=== PATIENT | female | born 1950 | race Caucasian/White ===

== ENCOUNTER 2017-11-27 12:50 | Outpatient (CLI) | payer MEDICARE | END 2017-11-27 12:51 | disposition home or self-care (01) | LOC: DI 12:50 | PROVIDERS: ATTEND Internal Medicine Cardiovascular Disease | DX: R94.31 Abnormal electrocardiogram [ECG] [EKG] (principal) | CPT/HCPCS: 93306 ==

== ENCOUNTER 2017-12-11 13:07 | Outpatient (CLI) | payer MEDICARE | END 2017-12-11 13:08 | disposition home or self-care (01) | LOC: DI 13:07 | PROVIDERS: ATTEND Internal Medicine Cardiovascular Disease | DX: R93.1 Abnormal findings on diagnostic imaging of heart and coronary circulation (principal) | CPT/HCPCS: 93308 ==

== ENCOUNTER 2018-03-28 19:51 | Emergency (ER) | payer MEDICARE ==
[2018-03-28] MEDS ORDERED: ERYTHROMYCIN OPHTH OINT 1 GM TUBE LEFTEYE STA (20:42)
--- NOTE | 2018-03-28 20:44 | ED Physician Documentation ---
History of Present Illness - Stated complaint Stated Complaint: EYE REDNESS - Chief complaint Chief Complaint: General - History obtained from History obtained from: Patient - History of Present Illness Timing: Yesterday (Left eye redness and matted shut this morning with irritated feeling since yesterday, no injury or foreign body. She does not wear contacts. Her vision is unaffected.) Review of Systems Constitutional: denies: Fever, Chills Eyes: reports: Discharge, Irritation. 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 03/28/18 - Allergies Allergies/Adverse Reactions: Allergies Allergy/AdvReac Type Severity Reaction Status Date / Time No Known Drug Allergies Allergy Verified 03/28/18 20:01 - Social History Does the pt smoke?: No Smoking Status: Never smoker Does the pt drink ETOH?: No Does the pt have substance abuse?: No - Immunizations Immunizations are current?: Yes - POLST Patient has POLST: No PD ED PE NORMAL - Vitals Vital signs reviewed: Yes - General General: Alert and oriented X 3, No acute distress - HEENT HEENT: PERRL, EOMI, Other (Conjunctivitis of the left eye) - Neuro Neuro: Alert and oriented X 3, Normal speech Eye Opening: Spontaneous Motor: Obeys Commands Verbal: Oriented GCS Score: 15 - Psych Psych: Normal mood, Normal affect Results - Vitals Vitals: Vital Signs - 24 hr 03/28/18 19:58 Temperature 36.7 C Heart Rate 78 Respiratory 16 Rate Blood Pressure 142/61 H O2 Saturation 96 Oxygen O2 Source Room air PD MEDICAL DECISION MAKING - Sepsis Event Vital Signs: Vital Signs - 24 hr 03/28/18 19:58 Temperature 36.7 C Heart Rate 78 Respiratory 16 Rate Blood Pressure 142/61 H O2 Saturation 96 Oxygen O2 Source Room air Departure - Departure Disposition: 01 Home, Self Care Clinical Impression: Conjunctivitis, left eye Qualifiers: Conjunctivitis type: acute Acute conjunctivitis type: unspecified Qualified Code(s): H10.32 - Unspecified acute conjunctivitis, left eye Condition: Good Record reviewed to determine appropriate education?: Yes Instructions: ED Conjunctivitis Nonspecific Prescriptions: Erythromycin Base [Erythromycin] 1 applic OP 5XD 7 Days oint...g. Comments: Follow-up with your eye doctor Saturday if not better, return if worse or if new symptoms develop. Your blood pressure was elevated today on check into the emergency department. This does not mean that you have hypertension, it is a common phenomenon to come to the emergency department and have elevated blood pressure. I recommend that you see your primary care physician within the week to have it rechecked when you are feeling better.
[2018-03-28 20:52] VITALS: BP 151/74
== END 2018-03-28 20:52 | disposition home or self-care (01) ==
LOC: ED 19:51
DX: H10.32 Unspecified acute conjunctivitis, left eye (principal); I10 Essential (primary) hypertension
CPT/HCPCS: 99283; J3490

== ENCOUNTER 2021-11-17 10:33 | Outpatient (CLI) | payer MEDICARE ==
--- NOTE | 2021-11-17 18:25 | DEXA Report ---
PROCEDURE: Dexa Spine and/or Hip INDICATIONS: POST MENOPAUSAL TECHNIQUE: Dual energy x-ray absorptiometry (DXA) was performed on a [employer] System. Regions measur ed are the AP Spine, femoral neck, and if needed forearm. COMPARISON: 07/26/2016 FINDINGS: Lumbar Spine: Bone Mineral Density 0.989 grams per cubic centimeter, previously 1.025 g/cm/cm, T score -1.6, ost eopenia Left Hip: Bone Mineral Density 0.852 grams per cubic centimeter, previously 0.929 g/cm/cm,T score -1.2, osteop enia (T score greater or equal to -1.0: NORMAL) (T score from -1.1 to -2.4: OSTEOPENIA) (T score less than or equal to -2.5 to: OSTEOPOROSIS) Impression: Worsening osteopenia. Patients with diagnosis of osteoporosis or osteopenia should have regular bone mineral density assess ment. For those eligible for Medicare, routine testing is allowed once every 2 years. Testing frequ ency can be increased for patients who have rapidly progressing disease or for those who are receivin g medical therapy to restore bone mass. Reviewed by: Connor Horta MD on 11/17/2021 5:24 PM [place] Approved by: Connor Horta MD on 11/17/2021 5:24 PM [place] Station ID: [id number]
== END 2021-11-17 10:34 | disposition home or self-care (01) ==
LOC: DI 10:33
PROVIDERS: ATTEND Nurse Practitioner Family
DX: Z78.0 Asymptomatic menopausal state (principal); M85.89 Other specified disorders of bone density and structure, multiple sites

== ENCOUNTER 2023-01-02 07:56 | Outpatient (CLI) | payer MEDICARE ==
[2023-01-02 14:35] LABS: BASOPHILS # (AUTO) 0.1 10^3/uL (0.0-0.1); EOSINOPHILS # (AUTO) 0.3 10^3/uL (0.0-0.7); EOSINOPHILS % (AUTO) 4.3 %; HCT - HEMATOCRIT 40.5 % (37.0-47.0); HGB - HEMOGLOBIN 13.3 g/dL (12.0-16.0); LYMPHOCYTES # (AUTO) 3.2 10^3/uL (1.5-3.5); LYMPHOCYTES % (AUTO) 54.5 %; MEAN CORPUSCULAR HEMOGLOBIN 29.1 pg (27.0-31.0); MEAN CORPUSCULAR HGB CONC 32.8 g/dL (32.0-36.0); MEAN CORPUSCULAR VOLUME 88.6 fL (81.0-99.0); MEAN PLATELET VOLUME 10.1 fL (7.9-10.8); MONOCYTES # (AUTO) 0.4 10^3/uL (0.0-1.0); MONOCYTES % (AUTO) 7.4 %; NEUTROPHILS # (AUTO) 1.9 10^3/uL (1.5-6.6); NEUTROPHILS % (AUTO) 32.3 %; PLT - PLATELET COUNT 265 10^3/uL (130-450); RED BLOOD COUNT 4.57 10^6/uL (4.20-5.40); RED CELL DISTRIBUTION WIDTH 12.2 % (12.0-15.0); WHITE BLOOD COUNT 5.8 x10^3/uL (4.8-10.8)
[2023-01-02 14:57] LABS: ALBUMIN 4.4 g/dL (3.2-5.5); ALBUMIN/GLOBULIN RATIO 1.6 (1.0-2.2); ALKALINE PHOSPHATASE 63 IU/L (42-121); ALT ALANINE AMINOTRANSFERASE 31 IU/L (10-60); AST ASPARTATE AMINOTRANSFERASE 23 IU/L (10-42); BILIRUBIN,TOTAL 0.8 mg/dL (0.2-1.0); BUN - BLOOD UREA NITROGEN 15 mg/dL (6-20); CALCIUM 9.4 mg/dL (8.5-10.3); CARBON DIOXIDE - CO2 28 mmol/L (21-32); CHLORIDE 105 mmol/L (101-111); CHOL/HDL RATIO 4.1 (<4.4); CHOLESTEROL 185 mg/dL; CREATININE 0.6 mg/dL (0.4-1.0); GFR - MDRD 99 (>89); GLUCOSE 115 mg/dL (70-100); HDL CHOLESTEROL 45 mg/dL; LDL CHOLESTEROL,CALCULATED 92 mg/dL; POTASSIUM 3.8 mmol/L (3.5-5.0); SODIUM 139 mmol/L (135-145); TOTAL PROTEIN 7.2 g/dL (6.7-8.2); TRIGLYCERIDES 238 mg/dL; VLDL CHOLESTEROL 48 mg/dL
[2023-01-02 15:06] LABS: THYROID STIMULATING HORMONE 5.15 uIU/mL (0.34-5.60)
[2023-01-02 20:41] LABS: ESTIMATED AVERAGE GLUCOSE 105 mg/dL (70-100); HEMOGLOBIN A1c% 5.3 % (4.27-6.07)
== END 2023-01-02 07:57 | disposition home or self-care (01) ==
LOC: LAB.S 07:56
PROVIDERS: ATTEND Nurse Practitioner Acute Care
DX: Z13.228 Encounter for screening for other metabolic disorders (principal); Z13.220 Encounter for screening for lipoid disorders; Z13.1 Encounter for screening for diabetes mellitus; Z13.29 Encounter for screening for other suspected endocrine disorder; Z13.0 Encounter for screening for diseases of the blood and blood-forming organs and certain disorders involving the immune mechanism
CPT/HCPCS: 36415; 80053; 80061; 83036; 83721; 84443; 85025

== ENCOUNTER 2023-02-27 14:10 | Emergency (ER) | payer MEDICARE ==
[2023-02-27] MEDS ORDERED: DEXAMETHASONE 10 MG/ML VIAL PO STA (14:37)
[2023-02-27] MEDS ORDERED: CHERRY SYRUP 10 ML UDC PO ONE (14:37)
--- NOTE | 2023-02-27 14:40 | ED Physician Documentation ---
PD HPI URI - Stated complaint Stated Complaint: CHEST PX - Chief complaint Chief Complaint: Resp - History obtained from History obtained from: Patient - History of Present Illness Timing - onset: How many days ago (4) Timing duration: Days (4) Timing details: Gradual onset, Still present Associated symptoms: Nasal congestion, Rhinorrhea, Sinus pain, Sore throat, Productive cough. 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 She has done 3 COVID test they are all negative. She does have some sore throat. She denies shortness of breath. She is able to control her cough at night with Mucinex. She attempted to go see someone at the walk-in clinic and despite 2 tries she was not able to be seen. Review of Systems Constitutional: denies: Fever Eyes: denies: Decreased vision Ears: denies: Ear pain Nose: reports: Rhinorrhea / runny nose, Congestion, Sinus pressure / pain Throat: reports: Sore throat Cardiac: denies: Chest pain / pressure, Palpitations Respiratory: reports: Cough. 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 HEENT: Cataracts - Present Medications Home Medications: Ambulatory Orders Medication Instructions Recorded Confirmed Lisinopril 20 mg PO DAILY 01/30/13 02/27/23 Amox/Clav 875/125 [Augmentin] 1 each PO Q12H #20 tablet 02/27/23 Atorvastatin [Lipitor] 20 mg PO DAILY 02/27/23 02/27/23 Fluoxetine HCl [Prozac] 20 mg PO DAILY 02/27/23 02/27/23 - Allergies Allergies/Adverse Reactions: Allergies Allergy/AdvReac Type Severity Reaction Status Date / Time No Known Drug Allergies Allergy Verified 02/27/23 14:18 - Social History Does the pt smoke?: No Smoking Status: Never smoker Does the pt drink ETOH?: No Does the pt have substance abuse?: No - Immunizations Immunizations are current?: Yes - POLST Patient has POLST: No PD ED PE NORMAL - Vitals Vital signs reviewed: Yes (Hypertensive) - General General: Alert and oriented X 3, No acute distress, Well developed/nourished, Other (Pleasant 73-year-old female with a nasal quality to her voice.) - HEENT HEENT: Atraumatic, PERRL, EOMI, Ears normal, Pharynx benign, Other (Bilaterally maxillary sinus point tenderness) - Neck Neck: Supple, no meningeal sign, No bony TTP - Cardiac Cardiac: RRR, No murmur - Respiratory Respiratory: No respiratory distress, Clear bilaterally - Abdomen Abdomen: Normal bowel sounds, Soft, Non tender, Non distended - Back Back: No CVA TTP, No spinal TTP - Derm Derm: Normal color, Warm and dry, No rash - Extremities Extremities: No deformity, No edema - Neuro Neuro: Alert and oriented X 3, communications analyst 2-12 intact, No motor deficit, No sensory deficit, Normal speech Eye Opening: Spontaneous Motor: Obeys Commands Verbal: Oriented GCS Score: 15 - Psych Psych: Normal mood, Normal affect Results - Vitals Vitals: Vital Signs - 24 hr 02/27/23 02/27/23 14:13 14:46 Temperature 36.8 C 36.7 C Heart Rate 88 85 Respiratory 16 16 Rate Blood Pressure 181/76 H 170/75 H O2 Saturation 98 98 Oxygen O2 Source Room air PD Medical Decision Making - ED course Complexity details: re-evaluated patient, considered differential, d/w patient ED course: 73-year-old female producing green phlegm with a cough and sinus pain has clear lungs on examination with good air movement she has normal-appearing TMs and normal pharynx she has maxillary sinus point tenderness bilaterally. Today here in the emergency department she is administered dexamethasone 10 mg orally we will place her on a course of Augmentin for sinusitis. 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 Departure - Departure Disposition: Home, Self Care Clinical Impression: Sinusitis Qualifiers: Sinusitis location: maxillary Chronicity: acute Recurrence: not specified as recurrent Qualified Code(s): J01.00 - Acute maxillary sinusitis, unspecified Condition: Stable Instructions: ED Sinusitis Abx Tx Follow-Up: [facility] [place] [Provider Group] Prescriptions: Amox/Clav 875/125 [Augmentin] 1 each PO Q12H #20 tablet Comments: Irma, today it looks like you have sinusitis and this is likely the cause of your cough and phlegm production. We have given you a dose of dexamethasone and the expectation with that is improved with drainage of your sinuses over the day today. I have E scribed some Augmentin to the [facility] in [place]. This is an antibiotic that you will need to take twice a day for 10 days. The expectation with treatment is slow and steady improvement in the amount of phlegm you are producing with eventual resolution.
[2023-02-27 14:51] VITALS: BP 170/75
--- OUTSIDE RECORDS SUMMARY | 2023-02-27 15:14 | EXTERNAL MEDICAL SUMMARY RPT | Continuity of Care Document ---
Author Name Unknown Address [address] [place] [address] Phone Organization [facility] Address [address] [place] [id number] Phone Care Team Providers Care Financial Operations Clerk Name Role Phone Kaye Dyer Unavailable Unavail able Problems date description facility 2022-12-17 00:00 No current problems or disabili ty - unknown [facility] Social History date description facility 2022-12-17 00:00 Unknown if ever smoked All
== END 2023-02-27 14:52 | disposition home or self-care (01) ==
LOC: ED 14:10
DX: J01.00 Acute maxillary sinusitis, unspecified (principal)
CPT/HCPCS: 99282; 99283; A9270

== ENCOUNTER 2024-01-10 10:40 | Outpatient (CLI) | payer MEDICARE ==
--- NOTE | 2024-01-10 11:33 | DEXA Report ---
PROCEDURE: Dexa Spine and/or Hip INDICATIONS: POST MENOPAUSAL TECHNIQUE: Dual energy x-ray absorptiometry (DXA) was performed on a [employer] System. Regions measur ed are the AP Spine, femoral neck, and if needed forearm. COMPARISON: 11/17/2021 FINDINGS: Lumbar Spine: Bone Mineral Density: 0.938 g/cm/cm,T score: -2.0. Since the most recent prior study, there has been a statistically significant decrease in bone mineral density by 5.2 percent. Left Femoral Neck: Bone Mineral Density: 0.708 g/cm/cm, T score: -2.4. Left Hip: Bone Mineral Density: 0.787 g/cm/cm,T score: -1.8. Since the most recent prior study, there has been a statistically significant decrease in bone mineral density by 7.6 percent. (T score greater or equal to -1.0: NORMAL) (T score from -1.1 to -2.4: OSTEOPENIA) (T score less than or equal to -2.5 to: OSTEOPOROSIS) Impression: By WHO criteria, this patient has low bone density (osteopenia). Interval statistical decrease in bone mineral density of the lumbar spine. Interval statistical decre ase in bone mineral density of the hip. Patients with diagnosis of osteoporosis or osteopenia should have regular bone mineral density assess ment. For those eligible for Medicare, routine testing is allowed once every 2 years. Testing frequ ency can be increased for patients who have rapidly progressing disease or for those who are receivin g medical therapy to restore bone mass. Reviewed by: Jhony Mark MD on 01/10/2024 11:32 AM PDT Approved by: Jhony Mark MD on 01/10/2024 11:32 AM PDT Station ID: [id number]
== END 2024-01-10 10:41 | disposition home or self-care (01) ==
LOC: DI 10:40
PROVIDERS: ATTEND Nurse Practitioner Acute Care
DX: M85.89 Other specified disorders of bone density and structure, multiple sites (principal); Z78.0 Asymptomatic menopausal state

== ENCOUNTER 2024-01-14 07:43 | Outpatient (CLI) | payer MEDICARE ==
[2024-01-14 15:29] LABS: BASOPHILS # (AUTO) 0.1 10^3/uL (0.0-0.1); BASOPHILS % (AUTO) 1.2 %; EOSINOPHILS # (AUTO) 0.2 10^3/uL (0.0-0.7); EOSINOPHILS % (AUTO) 4.7 %; HCT - HEMATOCRIT 40.5 % (37.0-47.0); HGB - HEMOGLOBIN 13.3 g/dL (12.0-16.0); LYMPHOCYTES # (AUTO) 2.4 10^3/uL (1.5-3.5); LYMPHOCYTES % (AUTO) 47.2 %; MEAN CORPUSCULAR HEMOGLOBIN 29.5 pg (27.0-31.0); MEAN CORPUSCULAR HGB CONC 32.8 g/dL (32.0-36.0); MEAN CORPUSCULAR VOLUME 89.8 fL (81.0-99.0); MEAN PLATELET VOLUME 10.2 fL (7.9-10.8); MONOCYTES # (AUTO) 0.4 10^3/uL (0.0-1.0); MONOCYTES % (AUTO) 7.3 %; NEUTROPHILS % (AUTO) 39.2 %; PLT - PLATELET COUNT 261 10^3/uL (130-450); RED BLOOD COUNT 4.51 10^6/uL (4.20-5.40); RED CELL DISTRIBUTION WIDTH 12.5 % (12.0-15.0); WHITE BLOOD COUNT 5.1 x10^3/uL (4.8-10.8)
[2024-01-14 15:32] LABS: ALBUMIN 4.6 g/dL (3.2-5.5); ALBUMIN/GLOBULIN RATIO 1.8 (1.0-2.2); ALKALINE PHOSPHATASE 62 IU/L (42-121); ALT ALANINE AMINOTRANSFERASE 23 IU/L (10-60); AST ASPARTATE AMINOTRANSFERASE 17 IU/L (10-42); BILIRUBIN,TOTAL 0.7 mg/dL (0.2-1.0); BUN - BLOOD UREA NITROGEN 16 mg/dL (6-20); CALCIUM 10.2 mg/dL (8.5-10.3); CARBON DIOXIDE - CO2 26 mmol/L (21-32); CHLORIDE 109 mmol/L (101-111); CHOLESTEROL 180 mg/dL; CREATININE 0.6 mg/dL (0.6-1.3); GFR - MDRD 99 (>89); GLUCOSE 117 mg/dL (74-104); HDL CHOLESTEROL 45 mg/dL; LDL CHOLESTEROL,CALCULATED 85 mg/dL; LDL/HDL RATIO 1.9 (<4.4); SODIUM 141 mmol/L (135-145); TOTAL PROTEIN 7.1 g/dL (6.4-8.9); TRIGLYCERIDES 252 mg/dL (48-352); VLDL CHOLESTEROL 50 mg/dL
[2024-01-14 15:43] LABS: THYROID STIMULATING HORMONE 3.09 uIU/mL (0.34-5.60)
== END 2024-01-14 07:44 | disposition home or self-care (01) ==
LOC: LAB.S 07:43
PROVIDERS: ATTEND Nurse Practitioner Acute Care
DX: M85.80 Other specified disorders of bone density and structure, unspecified site (principal); Z13.228 Encounter for screening for other metabolic disorders; Z13.220 Encounter for screening for lipoid disorders; Z13.29 Encounter for screening for other suspected endocrine disorder; Z13.0 Encounter for screening for diseases of the blood and blood-forming organs and certain disorders involving the immune mechanism
CPT/HCPCS: 36415; 80053; 80061; 82306; 83036; 83721; 84443; 85025

== ENCOUNTER 2024-02-24 10:51 | Outpatient (CLI) | payer MEDICARE ==
--- NOTE | 2024-02-24 15:00 | XRAY Report ---
PROCEDURE: Hips w/Pelvis 2-3V BL INDICATIONS: PAIN IN UNSPECIFIED HIP TECHNIQUE: 2 view(s) of the hip were acquired. COMPARISON: None. FINDINGS: Bones: Mild to moderate bilateral hip arthrosis. Partially seen lumbosacral degenerative changes. No acute displaced fracture or dislocation. Soft tissues: No suspicious calcifications. IMPRESSION: Mild to moderate bilateral hip arthrosis. If there is high concern for further derangement, consider MRI evaluation. Reviewed by: Santosh Salcedo MD on 02/24/2024 2:59 PM PDT Approved by: Santosh Salcedo MD on 02/24/2024 2:59 PM PDT Station ID: [id number]
--- NOTE | 2024-02-24 15:01 | XRAY Report ---
PROCEDURE: Lumbar Spine 2-3V INDICATIONS: LOW BACK PAIN TECHNIQUE: 3 views of the lumbar spine were acquired. COMPARISON: None. FINDINGS: Bones: 8 mm of L4 on L5 anterolisthesis. Vertebral body heights are well-maintained. Mild to moderate degenerative changes. Soft tissues: Cholecystectomy clips. No suspicious calcifications. Calcifications in the pelvis may resent phleboliths versus small calcified fibroids. IMPRESSION: Mild to moderate overall degenerative changes. 8 mm of L4 on L5 anterolisthesis. If there is high con cern for further derangement, consider MRI evaluation. Reviewed by: Santosh Salcedo MD on 02/24/2024 3:00 PM PDT Approved by: Santosh Salcedo MD on 02/24/2024 3:00 PM PDT Station ID: [id number]
== END 2024-02-24 10:52 | disposition home or self-care (01) ==
LOC: DI 10:51
PROVIDERS: ATTEND Nurse Practitioner Acute Care
DX: M16.0 Bilateral primary osteoarthritis of hip (principal); M47.816 Spondylosis without myelopathy or radiculopathy, lumbar region; M43.16 Spondylolisthesis, lumbar region